=== PATIENT | female | born 1990 | race Two or more races ===

== ENCOUNTER 2021-02-16 18:04 | Emergency (ER) | payer OTHER ==
[~2021-02-16] VITALS: Ht 177.8 cm; Wt 74.4 kg
[~2021-02-16 18:04] MED LIST: PHENERGAN25 MG PO
[2021-02-16] MEDS ORDERED: PYRIDIUM200 MG PO (22:25)
[2021-02-16] MEDS ORDERED: LEVOFLOXACIN500 MG PO (22:25)
== END 2021-02-16 22:29 | disposition home or self-care (01) ==
LOC: ER 18:04
DX: N30.80 Other cystitis without hematuria (principal)

== ENCOUNTER 2022-02-10 15:23 | Emergency (ER) | payer OTHER ==
[~2022-02-10] VITALS: Ht 177.8 cm; Wt 78.9 kg
[~2022-02-10 15:23] MED LIST changes: +LEVOFLOXACIN500 MG PO; +PYRIDIUM200 MG PO
[2022-02-10] MEDS ORDERED: ZITHROMAX200 MG PO (21:06)
[2022-02-10] MEDS ORDERED: OSEL75CA PO (21:06)
== END 2022-02-10 21:20 | disposition home or self-care (01) ==
LOC: ER 15:23
DX: J10.1 Influenza due to other identified influenza virus with other respiratory manifestations (principal); A49.3 Mycoplasma infection, unspecified site; J03.90 Acute tonsillitis, unspecified; Z20.822 Contact with and (suspected) exposure to COVID-19

== ENCOUNTER 2022-03-19 20:06 | Emergency (ER) | payer OTHER ==
[~2022-03-19] VITALS: Ht 177.8 cm; Wt 78.9 kg
[~2022-03-19 20:06] MED LIST changes: +OSEL75CA PO; +ZITHROMAX200 MG PO
== END 2022-03-20 00:08 | disposition home or self-care (01) ==
LOC: ER 20:06
DX: S61.111A Laceration without foreign body of right thumb with damage to nail, initial encounter (principal); X58.XXXA Exposure to other specified factors, initial encounter; Y93.89 Activity, other specified; Y92.9 Unspecified place or not applicable; Y99.9 Unspecified external cause status

== ENCOUNTER 2022-09-26 10:53 | Emergency (ER) | payer OTHER ==
[~2022-09-26] VITALS: Ht 177.8 cm; Wt 74.4 kg
[2022-09-26] MEDS ORDERED: FLUCONAZOLE150 MG PO (15:11)
[2022-09-26] MEDS ORDERED: INTESTINEX680 M1 PO (15:11)
== END 2022-09-26 15:29 ==
LOC: ER 10:53
DX: B37.31 Acute candidiasis of vulva and vagina (principal)